=== PATIENT | male | born 1960 | race Caucasian/White ===

== ENCOUNTER 2022-05-22 08:52 | Outpatient (CLI) | payer BC, SELFPAY | END 2022-05-22 08:53 | disposition home or self-care (01) | PROVIDERS: PCP Family Medicine; Visit Provider Family Medicine | DX: Z00.00 Encounter for general adult medical examination without abnormal findings (principal); I10 Essential (primary) hypertension; E78.00 Pure hypercholesterolemia, unspecified; G47.00 Insomnia, unspecified | CPT/HCPCS: 80048; 80061; 80076; 84153 ==

== ENCOUNTER 2023-06-12 08:30 | Outpatient (CLI) | payer BC, SELFPAY | END 2023-06-12 08:31 | disposition home or self-care (01) | LOC: NFLDREF 06-13 10:21 | PROVIDERS: PCP Family Medicine; Referring Provider Family Medicine; Visit Provider Family Medicine | DX: I10 Essential (primary) hypertension (principal); Z12.5 Encounter for screening for malignant neoplasm of prostate; Z13.220 Encounter for screening for lipoid disorders | CPT/HCPCS: 80048; 80061; G0103 ==

== ENCOUNTER 2024-02-06 10:53 | Outpatient (RCR) | payer MEDICARE, SELFPAY | END 2024-06-05 23:59 | disposition home or self-care (01) | PROVIDERS: PCP Family Medicine; Visit Provider Orthopaedic Surgery Sports Medicine | DX: M17.11 Unilateral primary osteoarthritis, right knee (principal); Z96.651 Presence of right artificial knee joint; Z51.89 Encounter for other specified aftercare | CPT/HCPCS: 97110; 97116; 97161 ==

== ENCOUNTER 2024-02-27 08:49 | Outpatient (CLI) | payer MEDICARE, SELFPAY | END 2024-02-27 08:50 | disposition home or self-care (01) | LOC: RAD 08:50 | PROVIDERS: PCP Family Medicine; Visit Provider Family Medicine | DX: I44.7 Left bundle-branch block, unspecified (principal); I34.0 Nonrheumatic mitral (valve) insufficiency | CPT/HCPCS: 93306 ==

== ENCOUNTER 2024-08-21 08:17 | Outpatient (CLI) | payer MEDICARE, SELFPAY | END 2024-08-21 08:18 | disposition home or self-care (01) | LOC: NFLDREF 08-26 01:37 | PROVIDERS: PCP Family Medicine; Referring Provider Family Medicine; Visit Provider Family Medicine | DX: I10 Essential (primary) hypertension (principal); E78.00 Pure hypercholesterolemia, unspecified; N40.0 Benign prostatic hyperplasia without lower urinary tract symptoms; Z12.5 Encounter for screening for malignant neoplasm of prostate | CPT/HCPCS: 80053; 80061; G0103 ==

== ENCOUNTER 2024-08-29 10:36 | Outpatient (CLI) | payer MEDICARE, SELFPAY ==
--- NOTE | 2024-08-29 10:45 | CRLHL7_ITS ---
For Patients: As a result of the Century Cures Act, medical imaging exams and procedure reports are released immediately into your electronic medical record. You may view this report before your referring provider. If you have questions, please contact your health care provider. Examination: US abdominal aorta Indication: Family History of Ischemic Heart Disease. Abdominal aortic aneurysm screening. Technique: Maddox scale and color Doppler images of the aorta and common iliac arteries are obtained. Comparison: None Findings: Proximal aorta: 2.6 x 2.2 cm Mid aorta: 2.1 x 1.9 cm Distal aorta: 1.9 x 1.7 cm Right common iliac artery: 1.4 x 1.4 cm Left common iliac artery: 1.3 x 1.2 cm Impression: No abdominal aortic aneurysm. Dictated by Enrique Leal MD @ 08/29/2024 11:17:00 AM (Electronically Signed)
== END 2024-08-29 10:37 | disposition home or self-care (01) ==
LOC: US 10:37
PROVIDERS: PCP Family Medicine; Visit Provider Family Medicine
DX: Z13.6 Encounter for screening for cardiovascular disorders (principal); Z82.49 Family history of ischemic heart disease and other diseases of the circulatory system
CPT/HCPCS: 76706

== ENCOUNTER 2024-10-07 10:21 | Outpatient (CLI) | payer MEDICARE, SELFPAY ==
--- NOTE | 2024-10-14 11:56 | W.PM.SLEEP ---
Sleep Study Details Details Interpreting Provider: Vlad Date of Sleep Study: 10/07/24 Sleep Study Details: STUDY TYPE:? Home unattended ? BMI:? 28.43 ORDERING PROVIDER:? Lesley INDICATION:? Concerned about sleep apnea ? SLEEP SUMMARY:? 401 minutes monitored RESPIRATORY SUMMARY:? AHI 15.4 per rule 1A, 10.8 per CMS guideline Low oxygen 77 16.9% of study oxygen less than 90% Snoring 100% PERIODIC LIMB MOVEMENTS OF SLEEP:? Not recorded CARDIAC:? Range 56-81, mean 62.6 beats per minute IMPRESSION:? Mild to moderate obstructive sleep apnea with significant hypo oxygenation RECOMMENDATION: Recommend AutoSet CPAP although dental appliance may be adequate as well.
== END 2024-10-07 10:22 | disposition home or self-care (01) ==
PROVIDERS: PCP Family Medicine; Visit Provider Family Medicine
DX: G47.33 Obstructive sleep apnea (adult) (pediatric) (principal)
CPT/HCPCS: 95806